=== PATIENT | male | born 1980 | race Caucasian/White ===

== ENCOUNTER 2016-04-26 09:22 | Emergency (ER) | payer OTHER ==
[~2016-04-26] VITALS: Ht 177.8 cm; Wt 77.1 kg
[~2016-04-26 09:22] MED LIST: BACTRIM DS 8001 TAB PO; BUSPIRONE15 MG PO; CRESTOR10 MG PO; DIVALPROEX SOD500 M3 PO; TRAZODONE100 MG PO
--- NOTE | 2016-04-26 11:12 | ED GI/GU/ABDOMINAL COMPLAINT ---
History of Present Illness General Chief Complaint: Nausea, Vomiting, Diarrhea Stated Complaint: NVD,CP Source: patient Exam Limitations: no limitations Vital Signs & Intake/Output Vital Signs & Intake/Output Vital Signs Date Time Temp Pulse Resp B/P Pulse O2 O2 Flow FiO2 Ox Delivery Rate 04/26 1508 66 18 119/70 98 04/26 1315 99.5 74 18 125/63 98 Room Air 04/26 0925 97.1 88 16 110/70 99 Room Air Allergies Coded Allergies: Penicillins (Mild, rash 06/30/15) Reconcile Medications BUSPIRONE HCL (Buspirone HCl) 15 MG TAB 1 TAB PO BID MENTAL HEALTH (Reported) Dicyclomine Hydrochloride (Bentyl) 10 MG CAPSULE 1 CAP PO TID GASTRITIS Divalproex Sodium (Divalproex Sodium ER) 500 MG TAB.ER.24H 4 TAB PO BID UNKNOWN (Reported) Ondansetron HCl (Zofran) 4 MG TABLET 1 TAB PO Q6-8P PRN NAUSEA Rosuvastatin Calcium (Crestor) 10 MG TAB 1 MG PO DAILY hld TRAZODONE HCL (Trazodone HCl) 100 MG TAB 1 TAB PO QPM SLEEP (Reported) Triage Note: PT STATES THAT HE VOMITTED X 3 IN THE PAST HOUR, DENIES ABD PAIN Triage Nurses Notes Reviewed? yes Onset: Abrupt Duration: constant Timing: single episode today Quality/Severity: moderate Severity Numbers: 5 Radiation: no radiation Activities at Onset: none Prior Abdominal Problems: none HPI: Patient is a 35-year-old male who presents emergency room in that he was woken up acutely this morning of nausea and vomiting which he has had 3 episodes of nonbloody nonbilious emesis and since generalized abdominal discomfort. Last bowel movement was 2 days ago. Patient has not been able tolerate anything since. Denies any fever chills chest pain arm pain jaw pain back pain Past History Travel History Traveled to [place] past 21 day No Medical History Any Pertinent Medical History? 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 No Review of Systems Review of Systems Constitutional: Reports: no symptoms. EENTM: Reports: no symptoms. Respiratory: Reports: no symptoms. Cardiovascular: Reports: no symptoms. GI: Reports: see HPI, abdominal pain, nausea. Genitourinary: Reports: no symptoms. Musculoskeletal: Reports: no symptoms. Skin: Reports: no symptoms. Neurological/Psychological: Reports: no symptoms. Hematologic/Endocrine: Reports: no symptoms. Immunologic/Allergic: Reports: no symptoms. All Other Systems: Reviewed and Negative Physical Exam Physical Exam General Appearance: well developed/nourished, no apparent distress, alert Gastrointestinal: normal bowel sounds, soft, GENERALIZED ABDOMINAL POINT TENDERNESS NOTED Comments: Well-developed well-nourished person in no acute distress HEENT: Normal EENT exam, Neck: Supple, no lymphadenopathy, normal range of motion without pain or tenderness Back: Nontender, no CVA tenderness. Cardiovascular: Regular rate and rhythms no murmurs rubs or gallops, normal JVP Respiratory: Chest nontender. No respiratory distress.breath sounds clear to auscultation bilaterally Extremity: No edema, no calf tenderness to palpation, normal and equal pulses. Neuro: Alert oriented x3, motor sensory normal, Skin: No appreciable rash on exposed skin, skin is warm and dry. Psych: Mood and affect is normal, memory and judgment is normal. Core Measures ACS in differential dx? No Severe Sepsis Present: No Septic Shock Present: No Progress Differential Diagnosis: AAA, AMI, appendicitis, biliary colic, bowel obstruction , cholecystitis, diverticulitis, epididymitis, esophageal varices, gastritis, hepatitis, hernia, hemorrhoids, ischemic bowel, inflamm bowel dis, Rosangela-Eva tear, orchitis, pancreatitis, prostatitis, peptic ulcer, PUD/GERD, perforated viscous, pyelonephritis, SBO, STD, testicular torsion, ureterolithiasis, urinary retention, urethritis, UTI/pyelo Plan of Care: Orders Procedure Date/time Status LIPASE 04/26 1139 Complete COMPREHENSIVE METABOLIC PANEL 04/26 1139 Complete CBC WITHOUT DIFFERENTIAL 04/26 1139 Complete AMYLASE 04/26 1139 Complete EKG 04/26 0923 Active Laboratory Tests 04/26/16 1147: Anion Gap 10, Estimated GFR > 60, BUN/Creatinine Ratio 17.5, Glucose 84, Calcium 9.6, Total Bilirubin 0.9, AST 30, ALT 48, Alkaline Phosphatase 89, Total Protein 8.5 H, Albumin 4.8, Globulin 3.7, Albumin/Globulin Ratio 1.3, Amylase 69, Lipase 105, CBC w Diff NO MAN DIFF REQ, RBC 5.39, MCV 86.7, MCH 29.6, RDW 12.9, MPV 10.6 H, Gran % 86.4 H, Lymphocytes % 9.3 L, Monocytes % 3.0, Eosinophils % 1.0, Basophils % 0.3, Absolute Granulocytes 11.8 H, Absolute Lymphocytes 1.3, Absolute Monocytes 0.4, Absolute Eosinophils 0.1, Absolute Basophils 0, PUBS MCHC 34.1 CT scan was unremarkable for acute process especially no concerns of appendicitis. Due to history of present on some exam finds patient is likely to have gastritis most likely either viral etiology. Patient was able tolerate by mouth upon discharge. Patient was afebrile (DIEGO GLASER,BILL) Diagnostic Imaging: Viewed by Me: CT Scan. Radiology Impression: no acute abnormality Initial ED EKG: none Comments: PATIENT: SAMUEL WU PRESENT AGE: 35 PATIENT ACCOUNT NO: [id number] : 82 LOCATION: [facility] ORDERING PHYSICIAN: BILL GLASER SERVICE DATE: 04/26/16 EXAM TYPE: CAT - CT ABD & PELVIS W IV CONTRAST EXAMINATION: CT ABDOMEN AND PELVIS WITH CONTRAST CLINICAL INFORMATION: Right lower quadrant pain with nausea, vomiting and diarrhea. Evaluate for appendicitis. COMPARISON: None TECHNIQUE: Multidetector volumetric imaging was performed of the abdomen and pelvis before and after the IV administration of 94 mL of Optiray 320 intravenous contrast. Sagittal and coronal reformatted images were obtained on the technologist's workstation. DLP: 441.13 mGy-cm FINDINGS: LUNG BASES: The visualized lung bases are unremarkable. LIVER, GALLBLADDER, AND BILIARY TREE: The liver is normal in size, shape, and attenuation. No focal hepatic lesion or biliary ductal dilatation is present. The gallbladder is unremarkable with no evidence of radiopaque gallstones, gallbladder wall thickening, or obvious pericholecystic inflammatory changes. PANCREAS: Unremarkable. SPLEEN: Unremarkable. A splenule is noted. ADRENAL GLANDS: Unremarkable. KIDNEYS AND URETERS: The kidneys are normal in size, shape, and attenuation. No hydronephrosis, hydroureter, or calculi are seen. No perinephric stranding. A tiny cyst is noted in the mid portion of the right kidney. BLADDER: Empty and cannot be evaluated. GASTROINTESTINAL TRACT: The small and large bowel is unremarkable. The appendix is not seen with certainty but no abnormal fluid collection or mass is seen in the area of the appendix. ABDOMINAL WALL: No significant hernia is appreciated. LYMPH NODES: Some small inguinal nodes are seen. VASCULAR: Unremarkable. PELVIC VISCERA: Unremarkable. A single calcification is noted in the partially visualized right inguinal canal. OSSEOUS STRUCTURES: Unremarkable. IMPRESSION: A cause for the patient's right lower quadrant pain has not been found. The appendix is not identified with certainty but no abnormality is seen in this region. Departure Departure Disposition: HOME OR SELF CARE Condition: Stable Clinical Impression Primary Impression: Gastritis Secondary Impressions: Nausea & vomiting Referrals: DULCE MERCADO APRN (PCP/Family) Additional Instructions: As discussed begin a 24-hour clear liquid and bland diet to rest YOUR bowels. Begin the prescription Zofran for nausea and Bentyl for your abdominal complaints. If no better in 2 days follow-up with polishing wheel repairer Dr. Hameed. If symptoms worsen return to emergency room. Continue home medications as directed. Departure Forms: Customer Survey General Discharge Information Prescriptions: Current Visit Scripts Dicyclomine Hydrochloride (Bentyl) 1 CAP PO TID #9 CAP Ondansetron HCl (Zofran) 1 TAB PO Q6-8P PRN NAUSEA #15 TAB
[2016-04-26 12:10] LABS: ABSOLUTE BASOPHIL COUNT 0 /CUMM (0.0-0.2); ABSOLUTE EOSINOPHIL COUNT 0.1 /CUMM (0.0-0.7); ABSOLUTE GRANULOCYTE CT 11.8 /CUMM (1.4-6.5); ABSOLUTE LYMPH COUNT 1.3 /CUMM (1.2-3.4); ABSOLUTE MONOCYTE COUNT 0.4 /CUMM (0.10-0.60); BASOPHIL % 0.3 % (0.0-2.0); HEMATOCRIT 46.8 % (42-52); MEAN CORPUSCULAR HGB 29.6 PG (27.0-31.0); MEAN CORPUSCULAR HGB CONC 34.1 G/DL (33.0-37.0); MEAN CORPUSCULAR VOLUME 86.7 FL (80.0-94.0); MEAN PLATELET VOLUME 10.6 FL (7.4-10.4); PLATELET COUNT 232 /CUMM (130-400); RBC DISTRIBUTION WIDTH 12.9 % (11.5-14.5); RED BLOOD CELL CT 5.39 /CUMM (4.70-6.10); WHITE BLOOD CELL COUNT 13.7 /CUMM (4.8-10.8)
[2016-04-26 13:22] LABS: GRANULOCYTE % 86.4 % (42.2-75.2)
--- NOTE | 2016-04-26 14:30 | CT SCAN REPORT ---
EXAMINATION: CT ABDOMEN AND PELVIS WITH CONTRAST CLINICAL INFORMATION: Right lower quadrant pain with nausea, vomiting and diarrhea. Evaluate for appendicitis. COMPARISON: None TECHNIQUE: Multidetector volumetric imaging was performed of the abdomen and pelvis before and after the IV administration of 94 mL of Optiray 320 intravenous contrast. Sagittal and coronal reformatted images were obtained on the technologist's workstation. DLP: 441.13 mGy-cm FINDINGS: LUNG BASES: The visualized lung bases are unremarkable. LIVER, GALLBLADDER, AND BILIARY TREE: The liver is normal in size, shape, and attenuation. No focal hepatic lesion or biliary ductal dilatation is present. The gallbladder is unremarkable with no evidence of radiopaque gallstones, gallbladder wall thickening, or obvious pericholecystic inflammatory changes. PANCREAS: Unremarkable. SPLEEN: Unremarkable. A splenule is noted. ADRENAL GLANDS: Unremarkable. KIDNEYS AND URETERS: The kidneys are normal in size, shape, and attenuation. No hydronephrosis, hydroureter, or calculi are seen. No perinephric stranding. A tiny cyst is noted in the mid portion of the right kidney. BLADDER: Empty and cannot be evaluated. GASTROINTESTINAL TRACT: The small and large bowel is unremarkable. The appendix is not seen with certainty but no abnormal fluid collection or mass is seen in the area of the appendix. ABDOMINAL WALL: No significant hernia is appreciated. LYMPH NODES: Some small inguinal nodes are seen. VASCULAR: Unremarkable. PELVIC VISCERA: Unremarkable. A single calcification is noted in the partially visualized right inguinal canal. OSSEOUS STRUCTURES: Unremarkable. IMPRESSION: A cause for the patient's right lower quadrant pain has not been found. The appendix is not identified with certainty but no abnormality is seen in this region.
[2016-04-26] MEDS ORDERED: ZOFRAN4 M2 PO (14:53)
[2016-04-26] MEDS ORDERED: BENTYL10 M1 PO (14:53)
[2016-04-26 15:08] VITALS: BP 119/70
== END 2016-04-26 15:26 ==
LOC: ERH 09:22
PROVIDERS: Physician Assistant
DX: K29.70 Gastritis, unspecified, without bleeding (principal); R10.84 Generalized abdominal pain
CPT/HCPCS: 74177; 93005; 93010; 96361; 96374; 96375; J2405